=== PATIENT | female | born 1970 | race American Indian/Alaskan Native ===

== ENCOUNTER 2017-04-28 06:56 | Inpatient (IN) | payer BC ==
[2017-04-28] MEDS ORDERED: ePHEDrine 50 mg/ml Inj ONE ×2 (07:40→09:08)
[2017-04-28] MEDS ORDERED: Propofol 10 mg/ml Inj (20 ML) ONE ×2 (07:40→09:08)
[2017-04-28] MEDS ORDERED: Succinylcholine 200 mg/10 ml Inj IV ONE ×2 (07:40→09:08)
[2017-04-28] MEDS ORDERED: Lidocaine 4% (Laryng-O-Jet) Kit MM ONE (07:40)
[2017-04-28] MEDS ORDERED: Rocuronium 10 mg/ml (5 ml) ONE ×3 (07:40→10:04)
[2017-04-28 08:04] LABS: MEAN CORPUSCULAR HEMOGLOBIN 27.7 pg (27.0-31.0); RBC 5.41 Mil/uL (3.80-5.20); RED CELL DISTRIBUTION WIDTH 14.1 % (11.5-14.5); WHITE BLOOD COUNT 6.6 K/uL (4.8-10.8)
[2017-04-28] MEDS ORDERED: Lidocaine 1% Inj (20ml) ONE (08:39)
[2017-04-28] MEDS ORDERED: Bupivacaine 0.5% Inj(30mL) ONE (08:40)
[2017-04-28] MEDS ORDERED: Midazolam 2 MG/2 ML VIAL ONE (09:08)
[2017-04-28] MEDS ORDERED: Lactated Ringer's 1,000 ML IV ONE ×3 (09:31→10:30)
[2017-04-28] MEDS ORDERED: Morphine 1 mg/ml preservative-free Inj(Duramorph) ONE (09:32)
[2017-04-28] MEDS ORDERED: Tranexamic Acid 100 mg/ml IV ONE (10:31)
[2017-04-28] MEDS ORDERED: Dexamethasone 4 mg/1 ml ONE (10:57)
[2017-04-28] MEDS ORDERED: Neostigmine 1:1000 (1 mg/ml) Inj ONE (11:01)
[2017-04-28] MEDS ORDERED: Bupivacaine 0.5% 50 ML IJ ONE (11:10)
[2017-04-28] MEDS ORDERED: Naloxone 0.4 mg/ml Inj (Adult) IVP PRN (11:33)
[2017-04-28] MEDS: HYDROmorphone 0.5 mg/0.5 ml ISec IVP PRN ×2 (11:37→11:47)
[2017-04-28] MEDS ORDERED: Acetaminophen IV 1,000 MG in IV SUPPLIES 100 ML IVPB ONE (11:45)
[2017-04-28] MEDS ORDERED: Acetaminophen IV IVPB ONE (12:00)
[2017-04-28] MEDS ORDERED: Oxycodone/Acetaminophen 5/325 mg Tab PO PRN ×3 (14:08→14:13)
[2017-04-29] MEDS: Oxycodone/Acetaminophen 5/325 mg Tab PO PRN ×2 (10:57→19:33)
--- NOTE | 2017-04-29 14:04 | CP.PCM.PN ---
Subjective - Date & Time of Evaluation Date of Evaluation: 04/29/17 Time of Evaluation: 14:02 - Subjective Subjective: Patient states that pain is much better now. She says that she gets a little dizzy when she is walking around, but is improving. She has voided but is not passing gas yet. Tolerating PO well. She has been out of bed in chair. She feels bloated currently. 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) 0 mg IV PRN PRN; Protocol PRN Reason: Pain, moderate (4-7) Last Admin: 04/28/17 13:37 Dose: 0 mg Naloxone HCl (Narcan) 0.1 mg IVP Q2M PRN PRN Reason: Shortness of Breath Ondansetron HCl (Zofran Inj) 4 mg IVP Q8 PRN PRN Reason: Nausea/Vomiting Last Admin: 04/28/17 14:07 Dose: 4 mg Oxycodone/Acetaminophen (Percocet 5/325 Mg Tab) 1 tab PO Q6 PRN PRN Reason: Pain, moderate (4-7) Stop: 05/01/17 13:16 Oxycodone/Acetaminophen (Percocet 5/325 Mg Tab) 2 tab PO Q6 PRN PRN Reason: Pain, severe (8-10) Stop: 05/01/17 13:16 Last Admin: 04/29/17 10:57 Dose: 2 tab - Labs Labs: 04/28/17 07:54 - GI/Abdominal Exam Additional comments: Patient in NAD Abd soft incisions intact calves soft NT neg homans Assessment and Plan (1) Fibroid uterus Assessment & Plan: POD#1 s/p myomectomy and laparotomy d/w Dr. Sandoval, informed of above. 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
[2017-04-30] MEDS: Oxycodone/Acetaminophen 5/325 mg Tab PO PRN ×2 (05:20→13:17)
[2017-04-30 07:34] VITALS: BP 108/68; PULSE 83; RESP 18; TEMP 98.2; O2SAT 98
--- NOTE | 2017-05-03 19:55 | OP ---
PROCEDURE DATE: 04/29/2017 PREOPERATIVE DIAGNOSES: Pelvic pain, menometrorrhagia, rapidly growing fibroids. POSTOPERATIVE DIAGNOSES: Pelvic pain, menometrorrhagia, rapidly growing fibroids, pelvic adhesions. PROCEDURE: Repeat laparotomy, multiple myomectomy and lysis of adhesions. SURGEON: Eder Sandoval MD CISTERN ROOM WORKING SUPERVISOR: Pato Moreno MD, General Surgery. TYPE OF ANESTHESIA: General endotracheal. ESTIMATED BLOOD LOSS: 300 mL SPECIMEN: Multiple fibroids sent to pathology. INDICATION FOR THE PROCEDURE: The patient is a 46-year-old female with a history of prior surgery for fibroids. She had a prior laparotomy. She did have persistent pain and bleeding and the fibroids are growing rapidly over the past 5 or 6 months. One of the fibroids was also in the submucosal position as confirmed by MRI. The patient was counseled with regards to the risk and benefits of the surgery, given the fact that it was a complicated procedure being a reoperation the patient understood all the risk including but not limited to injury to the uterus, the bowel and potential complications requiring a section if she choose to get in the future. The patient understood her risks and she signed the consent. DESCRIPTION OF PROCEDURE: After adequate anesthesia was obtained, the patient was placed in the dorsal lithotomy position. She was prepped and draped. The surgeon was gowned and gloved. At this point, a timeout was taken according to the hospital protocol and an incision was made on the skin along the patient's old incision. Given the fact that there were some severe scarring, we had to partially sacrifice the left rectus muscle where as we were able to dissect off on the right side. The peritoneum was entered and the incision was then extended. There were significant adhesions involving the bowel and the uterus upon entering the abdomen which were taken down by Dr. Moreno from General Surgery. At this point, the myomectomy itself started. Attention was then on the front side where the largest fibroid was identified. An incision on the serosa was made all the way down to the fibroid and the fibroid was gently dissected out. The defect was then closed in layers. At this point, attention was still anteriorly where another fibroid was identified. This is the fibroid that was in the submucosal position. It was identified and removed and it appeared that the endometrial cavity was partially entered. The endometrial cavity was then reapproximated with the running suture of 3-0 Vicryl and the rest of the defect was closed with running suture in layers of 2-0 Vicryl. At this point attention was on the posterior aspect of the uterus where after dissecting off further adhesions with aid of general surgery again an incision was made in serosa of the uterus and the muscle of the uterus was entered through the same incision, 4 additional fibroids were removed through the same incision. At this point, the defect was closed again in layers utilizing 2-0 Vicryl achieving excellent hemostasis . During the procedure the patient received about 650 units of Lysteda to reduce the bleeding. Again during the procedure about 350 mL of blood were lost. The pelvis again was irrigated. It was checked for hemostasis at this point was excellent. At this point the muscles were reapproximated utilizing a 2-0 PDS suture. A 0 PDS was used to close the fascia in the running fashion and a subcuticular closure with 3-0 Vicryl was performed for the skin. At the end of the procedure, all tapes and instrument counts were correct. The patient tolerated the procedure well, was taken to recovery room in excellent condition. Eder Sandoval MD
== END 2017-04-30 17:50 | disposition home or self-care (01) | DRG 743 ==
LOC: H.OPSURG 06:56 → H.MEDSURG1 13:15
PROVIDERS: ADMIT Obstetrics & Gynecology Reproductive Endocrinology; ATTEND Obstetrics & Gynecology Reproductive Endocrinology
PROC: 0UN40ZZ Release Uterine Supporting Structure, Open Approach (ICD-10-PCS; 2017-04-28)
PROC: 0UB90ZZ Excision of Uterus, Open Approach (ICD-10-PCS; principal; 2017-04-28 08:00)
DX: D25.0 Submucous leiomyoma of uterus (principal); N73.6 Female pelvic peritoneal adhesions (postinfective); N92.1 Excessive and frequent menstruation with irregular cycle